=== PATIENT | male | born 1965 | race Two or more races ===

== ENCOUNTER 2022-01-13 12:26 | Emergency (ER) | payer MEDICAID ==
[~2022-01-13] VITALS: Ht 185.4 cm; Wt 90.7 kg
[2022-01-13 12:45] VITALS: BP 154/102
--- NOTE | 2022-01-13 14:03 | NUR ---
Patient discharged to home in stable condition. Written and verbal after care instructions given. Patient verbalizes understanding of instruction.
== END 2022-01-13 14:04 | disposition home or self-care (01) ==
LOC: ER 12:34
DX: S43.491A Other sprain of right shoulder joint, initial encounter (principal); I25.2 Old myocardial infarction; X50.0XXA Overexertion from strenuous movement or load, initial encounter; Y93.89 Activity, other specified; Y92.89 Other specified places as the place of occurrence of the external cause; Y99.8 Other external cause status
CPT/HCPCS: 71045-TC; 73030-TC